=== PATIENT | female | born 1930 | race Caucasian/White ===

== ENCOUNTER 2017-11-12 12:54 | Day surgery (SDC) | payer MEDICARE ==
[~2017-11-12] VITALS: Ht 170.2 cm; Wt 68.0 kg
[~2017-11-12 12:54] MED LIST: ASPI81CH PO; HYDCHL25 PO; LEVSOD88 PO
== END 2017-11-12 22:42 | disposition home or self-care (01) ==
LOC: ORSCMMR 12:54 → ORD 13:00 → ORSCMMR 13:00
PROVIDERS: Orthopaedic Surgery
PROC: 0SP904Z Removal of Internal Fixation Device from Right Hip Joint, Open Approach (ICD-10-PCS; principal; 2017-11-12 14:25)
PROC: 0SH904Z Insertion of Internal Fixation Device into Right Hip Joint, Open Approach (ICD-10-PCS; principal; 2017-11-12 14:25)
DX: S72.001G Fracture of unspecified part of neck of right femur, subsequent encounter for closed fracture with delayed healing (principal); Z96.9 Presence of functional implant, unspecified; I50.30 Unspecified diastolic (congestive) heart failure; E03.9 Hypothyroidism, unspecified; Z79.899 Other long term (current) drug therapy; Z79.82 Long term (current) use of aspirin
CPT/HCPCS: 72170; 73552; C1713; J0690; J1100; J1885; J2370; J2405; J3010; J7120

== ENCOUNTER 2018-09-28 12:22 | Emergency (ER) | payer MEDICARE ==
[~2018-09-28] VITALS: Ht 170.2 cm; Wt 68.0 kg
[2018-09-28 13:20] LABS: Calcium, Ionized (POC) 1.08 mmol/L (1.10-1.46); Chloride (POC) 106 mmol/L (98-108); Glucose (ISTAT POC) 118 mg/dL (70-99); Hemoglobin (POC) 14.3 g/dL (12.0-16.0); Potassium (POC) 4.5 mmol/L (3.5-5.5); Sodium (POC) 140 mmol/L (135-148); Total CO2 (POC) 25 mmol/L (21-32)
== END 2018-09-28 14:36 | disposition home or self-care (01) ==
LOC: ER 12:22
PROVIDERS: Emergency Medicine
DX: Z04.3 Encounter for examination and observation following other accident (principal); W18.30XA Fall on same level, unspecified, initial encounter; Z79.899 Other long term (current) drug therapy; E03.9 Hypothyroidism, unspecified; Z85.3 Personal history of malignant neoplasm of breast
CPT/HCPCS: 36415; 80047; 85014; 99283